=== PATIENT | male | born 1975 | race Caucasian/White ===

== ENCOUNTER 2018-09-14 13:33 | Inpatient (IN) | payer MEDICAID ==
[~2018-09-14] VITALS: Ht 170.2 cm; Wt 102.1 kg
[2018-09-14 14:50] LABS: CALCIUM 8.9 mg/dL (8.5-10.1); CARBON DIOXIDE 27.3 mmol/L (21-32); CHLORIDE SERUM 99 mmol/L (98-107); GFR1 > 60 mL/min; GLUCOSE SERUM 123 mg/dL (74-106); POTASSIUM SERUM 3.6 mmol/L (3.5-5.1); SODIUM SERUM 133 mmol/L (136-145)
[2018-09-14 14:54] LABS: ALBUMIN 3.7 g/dL (3.4-5.0); ALKALINE PHOSPHATASE 89 U/L (46-116); ALT/SGPT 29 U/L (16-63); AST/SGOT 12 U/L (15-37); BILIRUBIN TOTAL 0.9 mg/dL (0.20-1.00); LIPASE 883 IU/L (73-393); TOTAL PROTEIN, SERUM 7.8 g/dL (6.4-8.2)
[2018-09-14 14:57] LABS: PLATELET COUNT 313 x10^3mcL (130-400); RED CELL DISTRIBUTION WIDTH 14.2 % (11.5-14.5)
[2018-09-14 15:25] LABS: BAND NEUTROPHIL 7 % (0-10); MONOCYTE 9 % (0-7); SEGMENTED NEUTROPHILS 78 % (37-75)
[2018-09-14 15:26] LABS: PLATELET MORPHOLOGY PLATELETS NORMAL; rbc morphology (normal/abnorm) NORMAL (NORMAL)
[2018-09-14 16:39] LABS: UA SPECIFIC GRAVITY 1.025 (1.005-1.035); microscopic required? YES; urine erythrocyte TRACE (NEGATIVE)
[2018-09-14 18:07] VITALS: BP 115/64
[2018-09-14 18:10] VITALS: Ht 170.2 cm; Wt 102.1 kg
[2018-09-14 18:26] LABS: PHOSPHOROUS 3.1 mg/dL (2.5-4.9)
[2018-09-14 18:37] LABS: FREE T4 0.92 ng/dL (0.76-1.46); T4(THYROXINE) 6.4 ug/dL (4.7-13.3)
[2018-09-14 18:38] LABS: T3 TOTAL 1.06 ng/mL
[2018-09-14 21:40] VITALS: BP 100/50
[2018-09-15 05:20] VITALS: BP 102/50
[2018-09-15 06:43] LABS: PLATELET COUNT 316 x10^3mcL (130-400)
[2018-09-15 07:10] LABS: CALCIUM 8.4 mg/dL (8.5-10.1); CARBON DIOXIDE 25.4 mmol/L (21-32); CHLORIDE SERUM 102 mmol/L (98-107); CREATININE SERUM 0.9 mg/dL (0.7-1.3); GFR1 > 60 mL/min; GLUCOSE SERUM 112 mg/dL (74-106); MAGNESIUM 2.1 mg/dL (1.8-2.4); PHOSPHOROUS 3.1 mg/dL (2.5-4.9); POTASSIUM SERUM 3.5 mmol/L (3.5-5.1); SODIUM SERUM 135 mmol/L (136-145)
[2018-09-15 08:33] VITALS: BP 114/65
[2018-09-15 12:22] LABS: ATYPICAL LYMPH 1 %; BAND NEUTROPHIL 0 % (0-10); BASOPHIL 0 % (0-2); MONOCYTE 8 % (0-7); SEGMENTED NEUTROPHILS 86 % (37-75)
[2018-09-15 12:23] LABS: PLATELET MORPHOLOGY PLATELETS NORMAL; rbc morphology (normal/abnorm) NORMAL (NORMAL)
[2018-09-15 13:04] VITALS: BP 105/55
[2018-09-15] MEDS ORDERED: LEVAQUIN750 MG PO (13:12)
[2018-09-15] MEDS ORDERED: LAC PO (13:12)
[2018-09-15 13:18] VITALS: BP 105/55
== END 2018-09-15 13:48 | disposition home or self-care (01) | DRG 720 ==
LOC: ED 13:33 → DU 16:26 → MU 16:26 → DU 19:00
PROVIDERS: Emergency Medicine; Internal Medicine
DX: A41.9 Sepsis, unspecified organism (principal); N17.0 Acute kidney failure with tubular necrosis; K85.90 Acute pancreatitis without necrosis or infection, unspecified; K57.32 Diverticulitis of large intestine without perforation or abscess without bleeding; E87.1 Hypo-osmolality and hyponatremia; R80.9 Proteinuria, unspecified; R73.03 Prediabetes; Z68.35 Body mass index [BMI] 35.0-35.9, adult
CPT/HCPCS: 84439; J1885; J1956; J2405; J2543; J3490; J7030